=== PATIENT | male | born 2005 | race Caucasian/White ===

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

== ENCOUNTER 2025-03-29 11:02 | Emergency (ER) | payer SELFPAY ==
--- OUTSIDE RECORDS SUMMARY | 2012-12-06 05:00 | XMS_ITS | Continuity of Care Document ---
Author Organization [facility]. 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 tel:[phone] Family History Family Member Type Diagnosis Age At Onset No Information Payers Payer name Insurance type Covered republican ID Authoriza tion(s) [place] [employer] [id number] Social History Type Description Quantity Date Captured Comments Sex Male Smoking Status No Information Chief Complaint And Reason For Visit No Information History Of Present Illness Encounter Date Complaint History Of Prese nt Illness No Information Instructions Date Instruction Additional Infor mation No Information Assessments Type Assessment Date No Information
[2025-03-29 11:08] VITALS: BP 162/88; PULSE 89; TEMP 36.8; O2SAT 99; BMI 20.3
--- NOTE | 2025-03-29 11:21 | XRR_ITS ---
PROCEDURE INFORMATION: Exam: XR Right Hand Exam date and time: 03/29/2025 12:21 PM Age: 19 years old Clinical indication: Injury or trauma; Blunt trauma (contusions or hematomas); Hand; Right; Additional info: Punched mirror TECHNIQUE: Imaging protocol: Radiologic exam of the right hand. Views: 3 or more views. COMPARISON: CR XR hand RT min 3V* [id number] 03/16/2022 3:07 PM FINDINGS: Bones/joints: Screws fixing the shaft of the 4th and 5th metacarpal bones with chronic fracture of the screw of the shaft of the 5th metacarpal bone. Soft tissues: Normal. XR/XR hand RT min 3V* [id number] IMPRESSION: No acute fracture or dislocation.
[2025-03-29] MEDS: HYDROcodone-acetaminophen 5-325 mg Tablet 1 TAB PO (11:42)
[2025-03-29 11:50] VITALS: BP 137/83; PULSE 71; O2SAT 97
--- NOTE | 2025-03-29 11:53 | W.ED.WOUNDLC ---
HPI - Wound/Laceration General: Chief Complaint: Wound/Laceration Stated Complaint: punched a mirror, R hand lac Time Seen by Provider: 03/29/25 11:17 Source: patient Mode of arrival: ambulatory Limitations: no limitations History of Present Illness: Patient is a 19-year-old male presents the emergency department after injuring his right hand after punching a mirror. Has small lacerations scattered to the dorsum of his right hand, states is difficult to make a fist and primarily pain to the 3rd, 4th and 5th MCP joints. Tetanus he states is up-to-date. Does report a history of prior surgery in the right hand where he has screws/rods in place. No active bleeding at this time. No loss of sensations distally or motor deficit. Onset (ago): minute(s) Extremity Location: Right: hand Patient tetanus UTD: Yes Associated symptoms: Denies chills, fever(s), nausea or vomiting Related Data Previous Rx's ?Medication ?Instructions ?Recorded cephalexin 500 mg capsule 500 mg PO Q6H 3 days #12 caps 03/29/25 Allergies Allergy/AdvReac Type Severity Reaction Status Date / Time No Known Allergies Allergy Verified 03/29/25 11:14 Review of Systems General: Reports: 10 or more systems reviewed and unremarkable except in HPI and below Const: Denies: fever(s) or chills Card: Denies: chest pain Resp: Denies: dyspnea or productive cough GI: Denies: abdominal pain, nausea, vomiting or diarrhea : Denies: flank pain Musc: Reports: extremity pain (rt hand); Denies: neck pain, back pain, extremity swelling, joint pain, joint swelling, joint redness, joint warmth, limited range of motion or muscle weakness Skin/Breast: Reports: new lesions (lacerations right hand); Denies: rash Neuro: Denies: headache(s), numbness in extremities or weakness in extremities PFSH ED PFSH: Medical History Parents Fracture of shaft of fifth metacarpal bone of right hand Fracture of shaft of fourth metacarpal bone of right hand Social History Smoking and tobacco/nicotine status: never used tobacco/nicotine Second hand smoke exposure: No Alcohol intake: never Substance/Drug Use: never Physical Exam Const: COMMON NORMALS: no acute distress, patient oriented x3, no limitations, healthy appearing, alert and well nourished HENMT: COMMON NORMALS: normocephalic and atraumatic HEAD & SCALP: normocephalic and atraumatic Neck/C-Spine: COMMON NORMALS: full ROM, supple and no meningeal signs Extremity: COMMON NORMALS: full ROM and capillary refill normal NARRATIVE EXTREMITY EXAM: Diffuse tender to palpation with swelling to dorsum of right hand, range of motion distal to the lesions are intact. Sensations also intact distally. Neuro: COMMON NORMALS: patient oriented x3, moves all extremities, no focal motor deficits and no sensory deficits noted SENSORIUM/ORIENTATION: Yes alert MENINGEAL SIGNS: Yes no meningeal signs Skin: NARRATIVE SKIN EXAM: Scattered tiny superficial lacerations to dorsum of right hand with no active bleeding. Notable is a 1 cm laceration in the webspace of the right 4th and 5th digit. There is a 2 cm flap-like laceration just proximal to the third right MCP on the dorsum. And there is a 1 cm flap-like laceration proximal to the fifth right MCP. Procedures Laceration Laceration 1: Site: hand Side (If applicable): right Size (cm): 1 Description: linear and clean Depth: simple, single layer Pre-repair: wound explored and irrigated extensively Skin layer closed with: nylon Size (cm): 5-0 Number of sutures: 2 Technique: simple, interrupted Laceration 2: Site: hand Side (If applicable): right Size (cm): 2 Description: flap and clean Depth: simple, single layer Pre-repair: wound explored and irrigated extensively Skin layer closed with: nylon Size (cm): 5-0 Number of sutures: 2 Laceration 3: Site: hand Side (If applicable): right Size (cm): 1.5 Description: flap and clean Depth: simple, single layer Pre-repair: wound explored and irrigated extensively Skin layer closed with: nylon Size (cm): 5-0 Number of sutures: 1 Technique: simple, interrupted Course Vital Signs: Vital signs: Vital Signs Temperature 98.3 F 03/29/25 11:08 Pulse Rate 71 03/29/25 11:50 Blood Pressure 137/83 03/29/25 11:50 Pulse Oximetry 97 03/29/25 11:50 Oxygen Delivery Me thod Room Air 03/29/25 11:50 MDM - Wound/Laceration Medical Decision Making Patient presented after punching mirror yesterday, causing multiple lacerations to dorsum of right hand. Pain with range of motion, no active bleeding or lacerations, he states his tetanus was up-to-date. X-ray negative. 3 of the lacerations were deep enough to require sutures to the emergency department, he is instructed how to care for these and when to have them removed. Will be started on prophylactic Keflex for a few days due to the location and extent of the wounds. Overall stable for discharge home but is given a work note to allow for him to give his hand proper rest and recovery. Lab Data Radiology Impressions Hand X-Ray 03/29/25 11:21 IMPRESSION: No acute fracture or dislocation. All radiology interpretation(s) finalized by discharge Discharge Plan Discharge Patient Disposition: Home Clinical Impression: Laceration of hand, right Qualifiers: Encounter type: initial encounter Foreign body presence: without foreign body Qualified Code(s): S61.411A - Laceration without foreign body of right hand, initial encounter Condition: Stable Prescriptions: New cephalexin 500 mg capsule 500 mg PO Q6H 3 Days Qty: 12 0RF Discharge Orders: Discharge ED (Routine); Ordered 03/29/25 Ordered By: Javi Langston Referrals: Cynthia Fernandez FNP [Primary Care Provider, Unknown] Patient Instructions: Patient Portal & Zari Instructions Activity Restrictions/Additional Instructions: Hand Laceration Discharge Instructions Wound Care Instructions: - Keep your hand clean and dry for the first 24 to 48 hours. Cover the wounds with a clean, non-stick bandage during this time. - After 48 hours, you may gently wash the area with soap and water. Do not scrub or soak the wounds. Pat dry and reapply a clean bandage. - Apply a thin layer of antibiotic ointment (like Neosporin or white petrolatum) before covering the wound. This helps prevent infection and scab formation. - Keep your hand elevated as much as possible to reduce swelling. - Watch for signs of infection: redness, warmth, swelling, pus, or increasing pain. If these occur, contact your healthcare provider. - Avoid heavy use of your hand until the wounds have healed. Suture Removal: - Sutures on the hand should be removed in 10 to 14 days. This helps prevent the wound from reopening and reduces scarring. - Schedule a follow-up appointment for suture removal within this timeframe. Cephalexin (Keflex) Instructions: - Take cephalexin exactly as prescribed: five times a day for three days. The usual adult dose is 250 mg every 6 hours, but follow your specific instructions. - Take each dose with a full glass of water. You may take it with or without food. - Complete the full course, even if you feel better before it is finished. Skipping doses or stopping early can reduce effectiveness and increase resistance. - If you develop a rash, difficulty breathing, or severe diarrhea, stop the medication and seek medical attention immediately. - Cephalexin is used to prevent infection in certain wounds. It does not treat viral infections. Other Important Information: - If you have not had a tetanus shot in the last 10 years, ask your provider if you need one. - Protect the healing wounds from sun exposure to reduce scarring. - After suture removal, the wound may be reinforced with adhesive strips for extra support. If you have any questions or concerns, or if you notice signs of infection, please contact your healthcare provider. Stand Alone Forms: Work/School Release Print Language: Welsh Coding Level of Care Code ED Fire Equipment Inspector Helper for Berry Aguilar
== END 2025-03-29 14:01 | disposition home or self-care (01) ==
PROVIDERS: Emergency Provider Physician Assistant; PCP Nurse Practitioner Family
DX: S61.411A Laceration without foreign body of right hand, initial encounter (principal); W22.8XXA Striking against or struck by other objects, initial encounter
CPT/HCPCS: 12002; 73130; 99283; J9999